=== PATIENT | female | born 1950 | race Caucasian/White ===

== ENCOUNTER → 2025-01-29 12:11 | Outpatient (BNVA) | payer MEDICARE, SELFPAY | PROVIDERS: Visit Provider Internal Medicine | DX: E07.9 Disorder of thyroid, unspecified (principal); E21.3 Hyperparathyroidism, unspecified; N20.0 Calculus of kidney; N18.9 Chronic kidney disease, unspecified; E55.9 Vitamin D deficiency, unspecified; Z90.5 Acquired absence of kidney | CPT/HCPCS: 36415; 80053; 82306; 82310; 82330; 83970; 99204 ==

== ENCOUNTER 2025-03-19 07:43 | Outpatient (CLI) | payer MEDICARE, MEDICAID, SELFPAY ==
--- NOTE | 2025-03-19 08:00 | NM_ITS ---
WS: [id number] EXAMINATION: NM parathyroid 09493 ORDER DATE: 03/19/2025 8:00 AM COMPARISON: None HISTORY: hyperparathyroidism TECHNIQUE: Parathyroid scintigraphy with 20.3 mCi of technetium 99m sestamib administered. AP and oblique views obtained with and without chin and suprasternal notch markers. Initial and 2 hour delayed imaging acquired. FINDINGS: Normal salivary gland uptake. Normal initial thyroid uptake. Normal thyroid washout. No focal radiotracer retention to indicate parathyroid adenoma NM/NM parathyroid [id number] IMPRESSION: 1. No evidence of parathyroid adenoma
== END 2025-03-19 07:44 | disposition home or self-care (01) ==
PROVIDERS: Visit Provider Family Medicine
DX: E21.0 Primary hyperparathyroidism (principal)
CPT/HCPCS: 78070; A9500